=== PATIENT | female | born 1965 | race Caucasian/White ===

== ENCOUNTER 2017-10-21 14:02 | Emergency (ER) | payer MEDICAID, OTHER ==
[~2017-10-21] VITALS: Ht 160 cm; Wt 95.7 kg
[2017-10-21 14:30] VITALS: BP 113/63
--- NOTE | 2017-10-21 15:58 | NUR ---
PATIENT AMB. TO OF#3
--- NOTE | 2017-10-21 16:21 | NUR ---
PATIENT PRESENTS TO ED WITH 1inch lac to right 5th digit while washing dishes today---- last tetanus 2016 hx----denies rx----vitamin 3, amoxicillin, fish oil sx----oophorectomy . DENIES N/V/D; SKIN IS PINK/WARM/DRY; AAOX4 WITH EVEN AND STEADY GAIT; LUNGS CLEAR BL; HR EVEN AND REGULAR; PT DENIES ANY FEVER, CP, SOB, OR COUGH AT THIS TIME; PATIENT STATES PAIN OF 6/10 AT THIS TIME; VSS; PT AMBULATES TO OF3; PATIENT POSITIONED FOR COMFORT; ER MD MADE AWARE OF PT STATUS.
[2017-10-21] MEDS ORDERED: LIDOCAINE 1% 500 MG/50 ML VIAL INJ SCH (17:20)
--- NOTE | 2017-10-21 17:34 | NUR ---
PT TAKEN OFF THE UNIT FOR XRAY
[2017-10-21] MEDS ORDERED: LIDOCAINE MPF 1% - **ER/OR** 5 ML ONE (17:42)
--- NOTE | 2017-10-21 18:25 | NUR ---
PT BEING SUTURED BY DR DIEGO TRANSFERRED TO BED10
[2017-10-21] MEDS ORDERED: BACITRACIN OINT 500 UNITS/GM PKT TP ONE (18:55)
[2017-10-21 19:09] VITALS: BP 137/79
--- NOTE | 2017-10-21 19:09 | NUR ---
Patient discharged with v/s stable. Written and verbal after care instructions given and explained. Patient verbalized understanding. Ambulatory with steady gait. All questions addressed prior to discharge. Advised to follow up with PMD.
== END 2017-10-21 19:09 | disposition home or self-care (01) ==
LOC: MED 14:02
DX: S61.217A Laceration without foreign body of left little finger without damage to nail, initial encounter (principal); W25.XXXA Contact with sharp glass, initial encounter; Y93.G1 Activity, food preparation and clean up; Y92.89 Other specified places as the place of occurrence of the external cause; Y99.8 Other external cause status; Z88.2 Allergy status to sulfonamides
CPT/HCPCS: 12001; 73130; 99284; J2001

== ENCOUNTER 2017-10-24 16:42 | Emergency (ER) | payer OTHER ==
[~2017-10-24] VITALS: Ht 162.6 cm; Wt 95.9 kg
--- NOTE | 2017-10-24 16:57 | NUR ---
PT AMBULATED TO BED 4.
[2017-10-24 16:58] VITALS: BP 113/68
--- NOTE | 2017-10-24 17:11 | NUR ---
PATIENT PRESENTS TO ED WITH LEFT FINGER S/P LACERATION WITH SUTURES. PT STATES RETURN TO ER FOR SUTURE REMOVAL. DENIES N/V/D; SKIN IS PINK/WARM/DRY; AAOX4 WITH EVEN AND STEADY GAIT; LUNGS CLEAR BL; HR EVEN AND REGULAR; PT DENIES ANY FEVER, CP, SOB, OR COUGH AT THIS TIME; PATIENT STATES PAIN OF 0/10 AT THIS TIME; VSS; PATIENT POSITIONED FOR COMFORT; HOB ELEVATED; BEDRAILS UP X2; BED DOWN. ER MD MADE AWARE OF PT STATUS.
[2017-10-24 17:24] VITALS: BP 113/68
== END 2017-10-24 17:25 | disposition home or self-care (01) ==
LOC: MED 16:42
DX: S61.217D Laceration without foreign body of left little finger without damage to nail, subsequent encounter (principal); Z88.2 Allergy status to sulfonamides; X58.XXXD Exposure to other specified factors, subsequent encounter
CPT/HCPCS: 99281

== ENCOUNTER 2023-03-08 16:17 | Emergency (ER) | payer OTHER ==
[~2023-03-08] VITALS: Ht 160 cm; Wt 100.7 kg
[2023-03-08 16:20] VITALS: BP 122/56; PULSE 70; RESP 18; TEMP 98; O2SAT 99
[2023-03-08] MEDS ORDERED: NAPR-1704 PO (18:20)
== END 2023-03-08 18:35 | disposition home or self-care (01) ==
LOC: MED 16:17
DX: S90.122A Contusion of left lesser toe(s) without damage to nail, initial encounter (principal); Z79.1 Long term (current) use of non-steroidal anti-inflammatories (NSAID); Z88.2 Allergy status to sulfonamides; E11.9 Type 2 diabetes mellitus without complications; E03.9 Hypothyroidism, unspecified; X58.XXXA Exposure to other specified factors, initial encounter; Y92.89 Other specified places as the place of occurrence of the external cause; Y93.89 Activity, other specified; Y99.8 Other external cause status
CPT/HCPCS: 73630; 99283